=== PATIENT | female | born 1980 | race Caucasian/White ===

== ENCOUNTER → 2019-08-07 09:58 | Outpatient (CLI) | payer MEDICAID, SELFPAY ==
[2019-08-13 17:39] LABS: Testosterone, % Free 0.98 % (0.50-2.80); Testosterone, Free 0.13 ng/dL (0.10-0.85); Testosterone, Total 13 ng/dL (8-48)
[2019-08-13 21:12] LABS: Androstenedione 84 ng/dL (41-262); Sex Hormone-binding Globulin 71.1 nmol/L (24.6-122.0)
== END ==
PROVIDERS: Referring Provider Dermatology; Visit Provider Dermatology
DX: L70.8 Other acne (principal); D22.39 Melanocytic nevi of other parts of face
CPT/HCPCS: 36415; 82157; 82627; 84270; 84402; 84403; 82626